=== PATIENT | female | born 1985 | race Caucasian/White ===

== ENCOUNTER 2020-07-01 07:35 | Inpatient (IN) | payer OTHER, SELFPAY ==
[2020-07-01] VITALS (148 sets, daily range): BP systolic 92–179; BP diastolic 43–133; PULSE 61–196; RESP 16–18; TEMP 36.6–37.3; O2SAT 93–100; BMI 29.2
--- NOTE | 2020-07-01 07:35 | LDADM ---
This patient, Mavis A Bansal, was admitted to Labor/Delivery/Recovery 119 on 07/01/20 at 07:35. Plans for labor, pain management and were discussed with patient. Patient/family oriented to hospital policies and general routines including ID bracelet, bed and alarms, visiting hours, pain management, procedures, bathroom and other care routines, personal items, smoking policy, room service/diet and guest tray routines, security routines, and visiting hours. Patient/Family are encouraged to report perceived risks to care and to ask questions if they do not understand what they are told or what they should do. See OBIX for further documentation.
--- NOTE | 2020-07-01 07:48 | PM.IMHP ---
H&P: HPI History of Present Illness Date/Time: 07/01/20 07:48 Chief complaint: amnicversion Narrative: Mavis Bansal is a 34 year old female at 39w3d who presents for ECV and possible due to breech presentation. has been complicated by prior x1 with successful in her G2. Her has otherwise been uncomplicated. She endorses good FM and denies vaginal bleeding or leakage of fluid. Review of Systems Cardiovascular: Cardiovascular: Denies chest pain, Denies leg edema, Denies palpitations, Denies dyspnea and Denies dyspnea on exertion Respiratory: Respiratory: Denies cough, Denies dyspnea and Denies dyspnea on exertion Gastrointestinal: Gastrointestinal: Denies abdominal pain, Denies constipation, Denies diarrhea, Denies nausea and Denies vomiting Genitourinary: Genitourinary: Denies hematuria, Denies urinary frequency, Denies dysuria, Denies pelvic pain, Denies urinary incontinence and Denies vaginal discharge Neurologic: Reports system reviewed and no additional complaints, except as documented Psychiatric: Psychiatric: Reports no additional psychiatric complaints Endocrine: Endocrine: Denies palpitations [facility] Family History Family History (Updated 06/04/20 @ 12:49 by Madhuri Lyle RN) Mother Scoliosis Sibling Brain neoplasm Social History Social History Smoking status: Never smoker Alcohol intake: current Substance use: never Spiritual care concerns: No Meds Home Medications and Allergies Home Medications Medication Instructions Recorded Confirmed Type PNV cmb#95-ferrous fumarate-FA 1 tablet PO DAILY 06/04/20 06/04/20 History [] Allergies Allergy/AdvReac Type Severity Reaction Status Date / Time No Known Allergies Allergy Verified 06/04/20 12:45 Exam Const: General: no acute distress Eyes: EOM: EOMs intact bilaterally Neck: Neck: supple Thyroid: thyroid normal Chest: Breast/axilla inspection: normal inspection of the breasts Breast/axilla palpation: normal palpation of the breasts, normal palpation of the axillae and no axillary lymphadenopathy Resp: Effort & Inspection: normal respiratory effort Auscultation: clear to auscultation bilaterally Cardio: Rate: regular rate Rhythm: regular rhythm GI: Inspection: non-distended GI Palp: Yes Soft to palpation, No Tenderness to palpation present (GI) and No Guarding due to palpation present (GI) Auscultation: normal bowel sounds : General: No bladder normal to palpation External Female Exam: normal external appearance Speculum Exam - Vagina: normal vaginal discharge and No vaginal bleeding Speculum Exam - Cervix: nontender Bimanual exam- vagina & uterus: No bladder normal to palpation and No Cervical tenderness present OB/external & speculum: No vaginal bleeding Skin: General skin exam: normal color and no rashes or lesions noted Neuro: Cognition (Neuro): normal cognition Speech: normal speech Extrem: General: normal to inspection and no edema Psych: Mental Status: mental status grossly normal Affect: normal affect Assessment and Plan Assessment and plan (1) Supervision of high risk , unspecified, third trimester: Code(s): O09.93 - Supervision of high risk , unspecified, third trimester Status: Acute Assessment and Plan: 34 yo at 39w3d Rh+ GBS neg (2) History of section complicating : Code(s): O34.219 - Maternal care for unspecified type scar from previous delivery Status: Acute Assessment and Plan: C/s in G1 successful in G2 (3) Breech presentation: Code(s): O32.1XX0 - Maternal care for breech presentation, not applicable or unspecified Status: Acute Assessment and Plan: US On 06/26 showed ariel breech fetus EFW [id number], posterior placenta JOSETTE wnl plan for ECV, if successful will start IOL if unsuccessful will procee
[2020-07-01] MEDS: LACTATED RINGERS 1,000 ML 125 ML IV CONT ×3 (08:23→12:23)
[2020-07-01 08:34] LABS: Basophils Absolute Auto 0.1 K/mm3 (0.0-0.1); Basophils Percent Auto 0.5 % (0.2-1.2); Eosinophils Absolute Auto 0.2 K/mm3 (0-0.3); Eosinophils Percent Auto 1.7 % (0-4.4); Hematocrit 30.8 % (37.0-47.0); Hemoglobin 10.6 g/dL (12.0-15.0); Immature Granulocyte Absolute 0.11 K/mm3 (0.00-0.031); Immature Granulocyte Percent A 1.2 % (0-0.5); Lymphocytes Absolute Auto 1.81 K/mm3 (0.9-3.2); Lymphocytes Percent Auto 19.7 % (18.3-44.2); Mean Corpuscular HGB Conc 34.4 g/dl (32-36); Mean Corpuscular Hemoglobin 32.2 pg (26-34); Mean Corpuscular Volume 93.6 fl (80-100); Monocytes Absolute Auto 0.9 K/mm3 (0.1-0.6); Monocytes Percent Auto 9.9 % (2.6-8.5); Neutrophils Absolute Auto 6.1 K/mm3 (1.3-6.7); Platelet Count Result 177 k/mm3 (150-375); Red Blood Count 3.29 M/mm3 (4.2-5.4); White Blood Count 9.2 K/mm3 (4.5-10.0)
--- NOTE | 2020-07-01 08:56 | WPDANESEPPF ---
Anes - Initial Pre Proc Eval Procedure: Operation Date: 07/01/20 09:00 Proposed Procedures p Epidural for attempted version with Induction of labor or Repeat Section to follow - Joshua Morris MD Date/Time: 07/01/20 08:56 Surgeon: Joshua Morris MD Pre Op Diagnosis: amnicversion Patient Data Age: 34 Gender: F Height: 5 ft 6 in Weight: 82 kg Last Vital Signs Temp 36.6 C 07/01/20 07:55 Pulse 66 07/01/20 08:46 BP 107/65 07/01/20 08:46 Allergies Allergy/AdvReac Type Severity Reaction Status Date / Time No Known Allergies Allergy Verified 06/04/20 12:45 Home Medications Medication Instructions Recorded Confirmed Type PNV cmb#95-ferrous fumarate-FA 1 tablet PO DAILY 06/04/20 06/04/20 History [] Laboratory Tests 07/01/20 07/01/20 08:25 08:25 WBC 9.2 K/mm3 K/mm3 (4.5-10.0) RBC 3.29 M/mm3 L M/mm3 (4.2-5.4) Hgb 10.6 g/dL L g/dL (12.0-15.0) Hct 30.8 % L % (37.0-47.0) MCV 93.6 fl fl (80-100) MCH 32.2 pg pg (26-34) MCHC 34.4 g/dl g/dl (32-36) RDW 13.0 % % (11.5-14.5) Plt Count 177 k/mm3 k/mm3 (150-375) MPV 10.0 fl fl (7.4-10.4) Immature Gran % (Auto) 1.2 % H % (0-0.5) Neut % (Auto) 67.0 % % (45.5-73.1) Lymph % (Auto) 19.7 % % (18.3-44.2) [place] % (Auto) 9.9 % H % (2.6-8.5) Eos % (Auto) 1.7 % % (0-4.4) Baso % (Auto) 0.5 % % (0.2-1.2) Lymph # (Auto) 1.81 K/mm3 K/mm3 (0.9-3.2) [place] # (Auto) 0.9 K/mm3 H K/mm3 (0.1-0.6) Eos # (Auto) 0.2 K/mm3 K/mm3 (0-0.3) Baso # (Auto) 0.1 K/mm3 K/mm3 (0.0-0.1) Abs Immat Gran (auto) 0.11 K/mm3 H K/mm3 (0.00-0.031) Absolute Neuts (auto) 6.1 K/mm3 K/mm3 (1.3-6.7) Absolute Nucleated RBC 0.0 K/mm3 K/mm3 (0.0-0.012) Nucleated RBC % 0.0 % % (0.0-0.2) RPR Pending Patient hx anesthesia problems: none Family hx anesthesia problems: none [facility] Past Medical History Medical History (Updated 07/01/20 @ 08:56 by Kyle Bearden MD) History of Family History Family History Mother Scoliosis Sibling Brain neoplasm Social History Social History Smoking status: Never smoker Alcohol intake: current Substance use: never Spiritual care concerns: No Anes - Eval Final PreProcedure Day of Procedure 07/01/20 08:56 Patient weight: overweight Heart: regular rate and rhythm Lungs: clear to auscultation Airway: Mallampati scale class II Neurological: alert and oriented Last oral intake: >/= 8 hours ASA classification: II Emergent: no Anesthetic plan: proceed Anesthesia type and monitoring: regional epidural and standard monitoring Informed Consent: The patient's anesthetic plan and its attendant risks and benefits were discussed with the patient/family/POA. Questions were solicited and answers provided to the satisfaction of the patient/family/POA.
[2020-07-01] MEDS: TERBUTALINE SULFATE 1 MG/ML VIAL 0.25 MG SUB-Q (09:31)
--- NOTE | 2020-07-01 09:53 | P.OP_ITS ---
Procedure Note - Detailed Date of procedure: 07/01/20 Pre-op diagnosis: amnicversion Post-op diagnosis: same Procedure performed: External cephalic version Description of procedure: The patient was counseled as above. Risks, benefits, and alternatives of ECV were discussed. Sonogram confirmed that the fetus was in breech position and no evidence of a nuchal cord with color doppler. The NST was reactive. The patient has no medical contraindications for terbutaline administration. Terbutaline 0.25mg sq was given by the RN. Epidural was placed by anesthesia. The patent was wheeled into the OR and laced in the supine position with a leftw yumiko tilt. Bedside US again confirmed breech presentation with the head in the LUQ and the back up. Decision was made to proceed with a forward role technique in a clockwise fashion. The buttocks was lifted out of the pelvis with direct suprapubic pressure. Once the fetus was disengaged, pressure was applied to the head to role in a clockwise direction. Pressure was also applied to the buttock to rotate clockwise cephalad. Direct BSUS was again performed to check postition. The version was successful on the first attempt. The fetus was placed back on the monitor following the procedure. FHT were noted to be bradycardic. Maternal blood pressure was noted to be hypotensive. BP was corrected by anesthesia. Maternal O2 supplementation was administered. FHT were monitored and noted to return to baseline. The patient was then transferred to a L&D room for IOL. Will continue to monitor FHT. Anesthesia: epidural Surgeon: Joshua Morris MD Estimated blood loss (mL): 0 Drains: No Packing: No Pathology: none sent Complications: No immediate complications Condition: stable Disposition: floor
--- NOTE | 2020-07-01 10:06 | PM.OBPNLAB ---
Pain Control Date/time seen: 07/01/20 10:06 Pain control: epidural Pelvic Exam Dilation (cm): 1 Effacement (%): 50 station: -3 Amniotic membrane status: Intact Contractions Monitor mode: None Status status: Category l Assessment and Plan Plan: begin patient augmentation Comments: fetus cephalic by BSUS. AROM for clear fluid. will augment with pitocin in 30 min if FHT remain cat 1
[2020-07-01] MEDS: OXYTOCIN 30 UNITS/NS 500 ML 30 UNITS/500 ML BAG 125 UNITS IV CONT ×2 (11:02→19:14)
[2020-07-01] MEDS: SODIUM CHLORIDE 0.9% IV 300 ML 600 ML I-UTERINE (17:20)
--- NOTE | 2020-07-01 18:43 | PM.OBPRVD ---
OB - Delivery Note Procedure Delivery date: 07/01/20 Procedure: Procedures Operation Date: 07/01/20 09:00 <No data on this case meets the specified criteria> events: Previous Induction method: per pitocin protocol Delivery augmentation: rupture of membranes Delivery monitor: external FHT Route of delivery: Episiotomy description: None Laceration description: Perineal - 2nd Degree Delivery repair: vicryl Specimen: No Estimated blood loss (mL): 300 Anesthesia type: Epidural Disposition: floor () Complications: No immediate complications [place] Baby Date of : 07/01/20 Time of : 18:22 Weeks of gestation at delivery: 39 gender: Female Weight (pounds): 7 Weight (ounces): 14 presentation: vertex position: Right Occiput Anterior Placenta delivery description: Spontaneous cord vessel description: 3 Vessels score one minute: 8 score five minutes: 9
[2020-07-01] MEDS: BENZOCAINE 20% AER SPR (*SP) 56 GM CAN 1 SPRAY TOPICAL (20:25)
[2020-07-01] MEDS: WITCH HAZEL 40 PADS 1 PAD TOPICAL (20:25)
[2020-07-01] MEDS: IBUPROFEN 600 MG TABLET PO (20:25)
--- NOTE | 2020-07-01 21:39 | PC.NURSE ---
07/01/2020 at 2114 Patient transferred to post room in wheelchair to room 283. Support person present. Oriented to unit, room, information board, rooming in, admission packet and security measures. Patient verbalizes understanding.
[2020-07-02] MEDS: IBUPROFEN 600 MG TABLET PO ×2 (04:48→17:26)
[2020-07-02 05:10] LABS: Hematocrit 25.2 % (37.0-47.0); Hemoglobin 8.7 g/dL (12.0-15.0)
[2020-07-02 07:30] VITALS: BP 106/64; PULSE 69; RESP 16; TEMP 36.4; O2SAT 100
--- NOTE | 2020-07-02 07:34 | P.PNOB_ITS ---
OB - PN: Subj Subjective Date/time seen: 07/02/20 07:34 Patient comments: no complaints, pain well controlled and tolerating diet [place] feeding status: exclusively breast feeding Narrative: patient doing well this AM. No complaints. Pain is well controlled. She reports minimal bleeding. She is ambulating and voiding without difficulty. She is tolerating PO. She denies N/V, fever, chills. OB - PN: Obj Data Labs CBC & Chem 7: 07/02/20 04:35 Labs: Laboratory Results - last 24 hr 07/01/20 07/01/20 07/02/20 08:25 08:25 04:35 WBC 9.2 RBC 3.29 L Hgb 10.6 L 8.7 L Hct 30.8 L 25.2 L MCV 93.6 MCH 32.2 MCHC 34.4 RDW 13.0 Plt Count 177 MPV 10.0 Immature Gran % (Auto) 1.2 H Neut % (Auto) 67.0 Lymph % (Auto) 19.7 [place] % (Auto) 9.9 H Eos % (Auto) 1.7 Baso % (Auto) 0.5 Lymph # (Auto) 1.81 [place] # (Auto) 0.9 H Eos # (Auto) 0.2 Baso # (Auto) 0.1 Abs Immat Gran (auto) 0.11 H Absolute Neuts (auto) 6.1 Absolute Nucleated RBC 0.0 Nucleated RBC % 0.0 Blood Type A Positive Antibody Screen Negative OB - PN A/P Plan day: 1 Plan: routine care Comments: patient doing well H/H 8.05/04, will start iron supplementation today continue routine care Time Spent With Patient Time: Total time spent is greater than 50% in coordination of care (as documented) at patient's floor/unit and/or counseling patient: Time with patient: less than 15 minutes Review of Systems Review of Systems: All systems reviewed & are unremarkable except as noted in HPI and below Exam Const: General: comfortable and no acute distress Resp: Effort & Inspection: normal respiratory effort Cardio: Rate: regular rate GI: GI Palp: Yes Soft to palpation and No Tenderness to palpation present (GI) Auscultation: normal bowel sounds Other: fundus firm and below umbilicus. Psych: Affect: normal affect
[2020-07-02 08:24] LABS: Rapid Plasma Reagin Non-Reactive (NonReactive)
[2020-07-02] MEDS: POLYSACCHARIDE IRON COMPLEX 150 MG CAPSULE PO ×2 (08:28→17:26)
[2020-07-02] MEDS: MULTIVIT/MIN/PREN/FOL AC/IRON TABLET 1 TAB PO (08:28)
[2020-07-02] MEDS: ACETAMINOPHEN 325 MG TABLET 650 MG PO ×3 (08:28→23:13)
--- NOTE | 2020-07-02 11:05 | PC.NURSE ---
Consulted with patient, mother called out for assist with waking , reporting last feeding was 4 hours ago. Reviewed infant feeding cues, frequencies, duration of feedings, feeding elimination flow sheet, and signs of adequate intake. Demonstrated stimulation techniques to wake for feeding. Several minutes of stimulation before awake and showing feeding cues. Assisted with to breast. Reviewed positioning/alignment in cross cradle, holding breast in U hold and guided asymmetrical latch on. was able to latch correctly with first attempt. Infant nursed eagerly, with steady draws and frequent swallowing noted. Reviewed signs of a correct latch, effective nursing and suck swallow ratio. Infant was able to maintain latch without discomfort to mother. Nipple care reviewed. Suggested to stimulate while feeding to keep awake and nursing effectively for increased intake and to assist with maintaining deep latch. Demonstrated how to adjust latch more deeply while feeidng. Instructed mother to call out for RN assistance if she is unable to latch infant for feeding or she has discomfort with nursing. Instructed feeding should be initiated three hours from start of last feeding or if feeding cues are noted before. Mother voiced understanding of information shared.
--- NOTE | 2020-07-02 14:01 | WPDANLDPN2 ---
Anes-Prog Note L&D Date/Time: 07/02/20 14:01 Comfortable throughout: labor and delivery Neuraxial method: epidural Neuro status: Neuro function grossly intact. Cardiovascular status: normal Respiratory status: normal Airway patency: baseline Mental status: baseline Post-Op hydration status: normal Vital Signs: Last Vital Signs Temp 36.4 C 07/02/20 07:30 Pulse 69 07/02/20 07:30 Resp 16 07/02/20 07:30 BP 106/64 07/02/20 07:30 Pulse Ox 100 07/02/20 07:30 Pain score (VAS): 0/10. Patient resting up to bedside, appears comfortable at time of assessment. Support person at bedside. I/O: Intake & Output 07/01/20 07/02/20 07/02/20 23:59 07:59 15:59 Intake Total 500 Output Total 400 Balance 100 Post-procedural complaints: none Patient feedback: Patient satisfied with anesthetic care.
[2020-07-02] MEDS: DOCUSATE SODIUM 100 MG CAPSULE PO (17:30)
[2020-07-02 19:12] VITALS: BP 113/67; PULSE 77; RESP 16; TEMP 36.9; O2SAT 97
[2020-07-03 08:30] VITALS: BP 102/58; PULSE 67; RESP 13; TEMP 36.8; O2SAT 100
--- NOTE | 2020-07-03 08:30 | PC.NURSE ---
Patient viewed the discharge video Mother & Baby Care, The First Two Weeks . Patient was given the opportunity and encouraged to ask questions. Patient verbalized understanding of information shared and has been given the mother/baby guide for home reference.
[2020-07-03] MEDS: POLYSACCHARIDE IRON COMPLEX 150 MG CAPSULE PO (08:33)
[2020-07-03] MEDS: DOCUSATE SODIUM 100 MG CAPSULE PO (08:33)
[2020-07-03] MEDS: IBUPROFEN 600 MG TABLET PO (08:33)
[2020-07-03] MEDS: MULTIVIT/MIN/PREN/FOL AC/IRON TABLET 1 TAB PO (08:33)
--- NOTE | 2020-07-03 11:05 | PC.NURSE ---
Oberved mother is able to independently latch with appropriate positioning/alignment. Mother reports this to be third child to breastfeed. She denies any nipple discomfort, is feeding as required and waking infant to feed if needed. has had at least 8 effective feedings in the last 24 hours , and is currently meeting outcomes for weight, output, jaundice and feeding frequencies. Mother states she feels confident to continue effective at home. Reviewed transition to breast milk, signs of adequate intake, and engorgement/relief. Instructed to call ICP if intake/output less than required. Reviewed regular medications mother is taking. Information provided per [facility]. Reviewed community resources on the [facility] website and in the Mom/Baby guide. Information on outpatient services provided. Mother has no further questions at this time.
[2020-07-04 11:20] VITALS: BP 109/60; PULSE 68; RESP 20; O2SAT 99
--- NOTE | 2020-07-18 08:10 | PM.OBDSVD ---
DS: Admitting Diagnosis Admitting Diagnosis Admitting Diagnosis: amnicversion OB - DS: Summary OB Procedures : None OB Procedures Intrapartum: Spontaneous Vag Delivery OB Procedures: : None Peripartum Data Procedures: Procedures Operation Date: 07/01/20 09:00 <No data on this case meets the specified criteria> Status at Discharge Functional status at discharge: independent ambulation Overall status at discharge: patient is back to baseline Time Spent with Patient Time attestation: Total time spent providing and/or coordinating discharge services: Time spent: Less than 30 minutes Exam Const: General: comfortable and no acute distress Resp: Effort & Inspection: normal respiratory effort Auscultation: clear to auscultation bilaterally Cardio: Rate: regular rate GI: GI Palp: Yes Soft to palpation Auscultation: normal bowel sounds Other: Fundus firm below umbilicus Psych: Appearance: grossly normal Mental Status: mental status grossly normal Affect: normal affect Discharge Plan Discharge Discharging Clinician: Joshua Morris Patient Disposition: Home, Self-Care Activity: may shower, as tolerated and pelvic rest Diet: regular Discharge Instructions: call or return for temperature >100.4, bleeding >2 pads/hr for 2 hrs, pain not controlled with medications, signs/symptoms of mastitis Education: Mom and Baby Guide and Preeclampsia Handout Given to: Mother Follow-Up: Call your delivering provider's office for an appointment to be seen in: 4 Weeks Mom and baby [facility] the follow-up appointment. Appointment Date/Time: July 04, 2020 at 11:00 am What to expect at your follow-up visit: Physical Assessment Call [phone] if you are unable to keep your appointment time. BREAST CARE: * Wear a snug supportive bra. * For engorgement discomfort: Breast Feeding: * Apply warm moist washcloths * Express milk as needed to relieve engorgement * Wear loose clothing * For sore nipples: * Identify correct latch-on * Apply warm moist washcloths before and after nursing * Air dry nipples after nursing * May apply Lansinoh cream to nipples EPISIOTOMY/PERINEAL CARE: * Until bleeding stops, use your mani bottle after urinating * Change your pad frequently throughout the day * You may take sitz baths several times a day (fill your bathtub with warm water and soak for 20 minutes.) Do NOT bathe in the water * No tub baths until seen by your physician - You may shower ACTIVITY: * Rest as much as possible. * Do not exercise or lift anything heavier than your baby (such as laundry or other children.) * Avoid stairs or driving as much as possible. * Do not put anything into the vagina. No douching, tampons, or sexual activity until seen by physician. NOTIFY PHYSICIAN IF YOU HAVE ANY QUESTIONS OR IF ANY OF THE FOLLOWING SYMPTOMS OCCUR: * If your episiotomy or incision becomes red, swollen, or more painful than what you have experienced in the hospital. * If your vaginal bleeding becomes foul smelling. * If your vaginal bleeding becomes more heavy than a period or if your bleeding changes from pink to bright red. However, you may pass an occasional walnut-sized clot once or twice for the first week . * If you experience a sharp, shooting pain in you calves. * If you discover a hard, reddened area on your breast or if you experience flu-like symptoms. DIET: * Eat regular, well-balanced meals. * Drink plenty of fluids daily. If , drink to thirst. Patient Instructions: Vaginal Delivery (DC) Stand Alone Forms: General Discharge Information Follow-up/Referrals: Joshua Morris MD [Physician] - 4 Weeks Discharge Medications: New acetaminophen [Mapap (acetaminophen)] 325 mg Tablet 650 mg PO Q6H PRN (Reason: Mild Pain (1-3
== END 2020-07-03 11:35 | disposition home or self-care (01) | DRG 807 ==
LOC: ANHLDR 11:02 → ANHOB2 21:14
PROVIDERS: Admitting Provider Student in an Organized Health Care Education/Training Program; Visit Provider Student in an Organized Health Care Education/Training Program
DX: O32.1XX0 Maternal care for breech presentation, not applicable or unspecified (principal); Z37.0 Single live birth; O34.211 Maternal care for low transverse scar from previous cesarean delivery; O70.1 Second degree perineal laceration during delivery; O76 Abnormality in fetal heart rate and rhythm complicating labor and delivery; Z3A.39 39 weeks gestation of pregnancy; Z23 Encounter for immunization
CPT/HCPCS: 36415; 85014; 85018; 85025; 86592; 86850; 86900; 86901; 90471; 90686; A9270; G0008; J2590; J2795; J3105; J7030; J7120

== ENCOUNTER 2025-01-10 09:45 | Inpatient (IN) | payer OTHER, SELFPAY ==
[2025-01-09 13:00] VITALS: BMI 27.6
[2025-01-10] VITALS (138 sets, daily range): BP systolic 92–132; BP diastolic 47–81; PULSE 61–93; RESP 16–18; TEMP 37–37.2; O2SAT 96–100
--- NOTE | 2025-01-10 10:34 | LDADM ---
This patient, Mavis A Bansal, was admitted to Labor/Delivery/Recovery 107 on 01/10/25 at 09:45. Plans for labor, pain management and were discussed with patient. Patient/family oriented to hospital policies and general routines including ID bracelet, bed and alarms, visiting hours, pain management, procedures, bathroom and other care routines, personal items, smoking policy, room service/diet and guest tray routines, security routines, and visiting hours. Patient/Family are encouraged to report perceived risks to care and to ask questions if they do not understand what they are told or what they should do. See OBIX for further documentation.
[2025-01-10 10:51] LABS: Basophils Percent Auto 0.4 % (0.2-1.2); Eosinophils Absolute Auto 0.1 K/mm3 (0-0.3); Hematocrit 32.7 % (37.0-47.0); Hemoglobin 11.3 g/dL (12.0-15.0); Immature Granulocyte Absolute 0.06 K/mm3 (0.00-0.031); Immature Granulocyte Percent A 0.6 % (0-0.5); Lymphocytes Absolute Auto 1.55 K/mm3 (0.9-3.2); Lymphocytes Percent Auto 16.8 % (18.3-44.2); Mean Corpuscular HGB Conc 34.6 g/dl (32-36); Mean Corpuscular Hemoglobin 31.2 pg (26-34); Mean Corpuscular Volume 90.3 fl (80-100); Monocytes Absolute Auto 0.5 K/mm3 (0.1-0.6); Monocytes Percent Auto 5.6 % (2.6-8.5); Neutrophils Percent Auto 75.6 % (45.5-73.1); Platelet Count Result 216 k/mm3 (150-375); Red Blood Count 3.62 M/mm3 (4.2-5.4); Red Cell Distribution Width 13.4 % (11.5-14.5); White Blood Count 9.2 K/mm3 (4.5-10.0)
[2025-01-10] MEDS: LACTATED RINGERS 1,000 ML 125 ML IV CONT (10:56)
--- NOTE | 2025-01-10 11:04 | PM.IMHP ---
H&P: HPI History of Present Illness Date/Time: 01/10/25 11:04 Chief Complaint: Labor at term with ruptured membranes Narrative: 39-year-old 4 para 3 whose last menstrual period is 04/10/2024, EDC is 01/15/2025, confirmed by 8 week ultrasound presents at 39 and half weeks gestation in active labor she has had a followed by 2 . This has been unremarkable she is negative for group B strep. The back is been described great detail and she voiced good understanding of the risks Review of Systems Review of Systems: All systems reviewed & are unremarkable except as noted in HPI and below PMFSH Past Medical History Medical History History of Family History Family History Mother Scoliosis Sibling Brain neoplasm Social History Social History Smoking status: Never smoker Alcohol intake: current Substance use: never Do You Feel Safe in your Home?: Yes Lack of Transportation: No Lack of Food: Never True Current Housing: I Have Housing Concerned About Future Housing: No Difficulty Paying Gas/Electric Bills: No Difficulty Paying for Meds: No Currently Unemployed: No Education: Bachelor's Degree Difficulty w/ Childcare or Family Care: No Spiritual care concerns: No Meds Home Medications and Allergies Home Medications ?Medication ?Instructions ?Recorded ?Confirmed ?Type vit no.95-ferrous 1 tablet PO DAILY 06/04/20 12/18/24 History fumarate 28 mg-folic acid 800 mcg tablet () Allergies Allergy/AdvReac Type Severity Reaction Status Date / Time No Known Allergies Allergy Verified 01/10/25 10:57 Vital Signs Vital Signs - 24 hr 01/10/25 10:29 01/10/25 10:31 01/10/25 10:33 Pulse Rate 68 66 Blood Pressure 102/76 101/69 Oxygen Delivery Room Air 01/10/25 10:46 01/10/25 11:01 Pulse Rate 66 72 Blood Pressure 106/71 110/67 Oxygen Delivery Exam Const: General: cooperative, healthy appearing and comfortable Nutritional Appearance: average body habitus Orientation/consciousness: oriented to person, oriented to place and oriented to time Resp: Effort & Inspection: normal respiratory effort Cardio: Rate: regular rate Rhythm: regular rhythm Heart sounds: S1 normal heart sound present and S2 normal heart sound present GI: Inspection: normal to inspection (Gravid soft uterus) : External Female Exam: normal external appearance Speculum Exam - Vagina: normal appearance of the vagina Speculum Exam - Cervix: normal appearance of the cervix (Cervix 4/75/2. Clear fluid seen. FHTs reassuring) Assessment and Plan Assessment and plan (1) History of section complicating : Code(s): O34.219 - Maternal care for unspecified type scar from previous delivery Status: Acute (2) Supervision of high risk , unspecified, third trimester: Code(s): O09.93 - Supervision of high risk , unspecified, third trimester Status: Acute Plan Epidural is in and working. Vaginal after is expected
--- OUTSIDE RECORDS SUMMARY | 2025-01-10 11:19 | XMS_ITS | Clinical Summary ---
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 Name Role Phone Unavailable Primary Care Provider Unavailabl e Allergies No known active allergies Medications No known medications Active Problems Problem Noted Date Diagnosed Date Abnormal ultrasound of breast 05/11/2019 Sign and symptom in breast 05/11/2019 Lump of right breast 02/02/2019 Social History Tobacco Use Types Packs/Day Years Used Date Smoking Tobacco: Never Smokeless Tobacco: Never Alcohol Use Standard Drinks/Week Comments Yes 0 (1 standard drink = 0.6 oz pur e alcohol) Comments No Sex and Gender Information Value Date Recorded Sex Assigned at Not on file 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 Gender Identity Not on file Sexual Orientation Not on file Last Filed Vital Signs Vital Sign Reading Time Taken Comments Blood Pressure 118/67 05/11/2019 8:48 AM CDT Pulse 73 05/11/2019 8:48 AM CDT Temperature 37.1 C (98.8 F) 05/11/2019 8:48 AM CDT Respiratory Rate - - Oxygen Saturation 99% 05/11/2019 8:48 AM CDT Inhaled Oxygen Concentration - - Weight 64.2 kg (141 lb 8 oz) 05/11/2019 8:48 AM CDT Height 167.6 cm (5' 6 ) 05/11/2019 8:48 AM CDT Body Mass Index 22.84 05/11/2019 8:48 AM CDT Plan of Treatment Health Maintenance Due Date Last Done Comments DTAP/TDAP/TD VACCINES (1 - Tdap) 2003 HEPATITIS B VACCINES (1 of 3 - 19+ 3-dose series) 2003 PAP SMEAR 2005 CERVICAL CANCER SCREENING 2014 HPV/Cotest (30-65) 2014 PAP SMEAR 2014 INFLUENZA VACCINE (#1) 2024 BREAST CANCER SCREENING 2024 11/25/2018 HPV VACCINES Aged Out No longer eligi ble based on patient's age to complete this topic PNEUMOCOCCAL VACCINE 0-49 YEARS Aged Out No longer eligible based on patient's age to complete this topic Procedures Procedure Name Priority Date/Time Associated Diagnosis Comments MAMMO BILAT DIAGNOSTIC Routine 11/25/2018 from Last 3 Months or Most Recently Relevant to Health Maintenance Results * MAMMO BILAT DIAGNOSTIC (11/25/2018) Anatomical Region Laterality Modality Breast Bilateral Mammography us Abstract Provider MAMMO ORDERABLES Final Result from Last 3 Months or Most Recently Relevant to Health Maintenance Insurance [employer] CHOICE POS II
[2025-01-10 11:27] LABS: Syphilis IgG/IgM Antibody Negative (Negative)
[2025-01-10 11:40] LABS: HIV 1/2 Ab P24 Ag Result Negative (Negative)
--- NOTE | 2025-01-10 15:25 | PM.OBPNLAB ---
Pain Control Date/time seen: 01/10/25 15:25 Pain control: tolerating well and epidural Pelvic Exam Dilation (cm): 5 Effacement (%): 100 station: -2
[2025-01-10] MEDS: OXYTOCIN 30 UNITS/NS 500 ML 30 UNITS/500 ML BAG 999 UNITS IV CONT (18:22)
--- NOTE | 2025-01-10 18:28 | PM.OBPRVD ---
OB - Vaginal Delivery Note Procedure Delivery date: 01/10/25 Events: Previous Delivery Induction method: None Delivery augmentation: Pitocin Delivery monitor: External FHT, External Uterine and Internal Uterine Route of delivery: Episiotomy description: None Laceration Description: Perineal - 1st Degree Delivery repair: vicryl Specimen: No Quantitative Blood Loss (ml): 62 Anesthesia type: Epidural Disposition: Floor Narrative: Patient was admitted with spontaneous rupture membranes at 39 weeks gestation. She had previous section followed by 2 successful vaginal after epidural anesthesia was placed. IUPC was placed and Pitocin was begun and a very small dose she was complete she pushed delivered head spontaneously in the JEN position. Anterior posterior shoulder delivered spontaneously. Cord clamped cut passed off the table given Apgars of 8 [id number]. Cord blood was drawn. Placenta delivered intact spontaneously. Twenty of Pitocin placed IV firm uterus spot lateral sidewall small first-degree laceration was noted figure-eight 0 Vicryl was placed blood loss was 62cc. All sponge, needle, instrument counts were correct. There were no immediate complications [place] Baby Date of : 01/10/25 Time of : 18:19 Gestational Age by Date: 39 gender: Male presentation: vertex position: Left Occiput Anterior Placenta delivery description: Spontaneous Cord Vessel Description: 3 Vessels score one minute: 8 score five minutes: 9
--- NOTE | 2025-01-10 18:31 | P.DS_ITS ---
DS: Admitting Diagnosis Discharge Date 01/12/2025 Admitting Diagnosis Term /previous section DS: Discharge Diagnosis Discharge Diagnosis (1) History of section complicating : Code(s): O34.219 - Maternal care for unspecified type scar from previous delivery Status: Acute (2) Supervision of high risk , unspecified, third trimester: Code(s): O09.93 - Supervision of high risk , unspecified, third trimester Status: Acute DS: Summary Hospital Course Reason for hospitalization: Patient was admitted in active labor on the early a.m. of 01/10/2025 she underwent successful vaginal after with epidural anesthesia Hospital Course: Patient's hospital course was unremarkable she remained afebrile she was up, voiding without difficulty regular diet, care for the baby and without complaints. Time Spent with Patient Time attestation: Total time spent providing and/or coordinating discharge services: Exam Const: General: cooperative, healthy appearing and comfortable Nutritional Appearance: average body habitus Orientation/consciousness: oriented to person, oriented to place and oriented to time HENMT: Head: normal to inspection Resp: Effort & Inspection: normal respiratory effort Cardio: Rate: regular rate Rhythm: regular rhythm Heart sounds: S1 normal heart sound present and S2 normal heart sound present GI: Inspection: normal to inspection (Fundus firm below the umbilicus) DS: Data Data Completed and Pending Labs on day of discharge: Labs from last 24 hours 01/10/25 10:28 WBC 9.2 RBC 3.62 L Hgb 11.3 L Hct 32.7 L MCV 90.3 MCH 31.2 MCHC 34.6 RDW 13.4 Plt Count 216 MPV 10.0 Immature Gran % (Auto) 0.6 H Neut % (Auto) 75.6 H Lymph % (Auto) 16.8 L [place] % (Auto) 5.6 Eos % (Auto) 1.0 Baso % (Auto) 0.4 Lymph # (Auto) 1.55 Wood # (Auto) 0.5 Eos # (Auto) 0.1 Baso # (Auto) 0.0 Abs Immat Gran (auto) 0.06 H Absolute Neuts (auto) 7.0 H Absolute Nucleated RBC 0.000 Nucleated RBC % 0.0 Syphilis IgG/IgM Ab Negative HIV 1&2 Ab/P24 Ag 4thGn Negative Blood Type A Positive Antibody Screen Negative Discharge Plan Discharge Attending physician on discharge: Kyle Fischer Discharging Clinician: Kyle Fischer Patient Disposition: Home, Self-Care Activity: may shower, no straining and pelvic rest Diet: heart healthy Wound Care Instructions: follow printed instructions Patient Instructions: Antibiotic Form Patient Language: Moz[place]ican Stand Alone Forms: General Discharge Information Follow-up/Referrals: Kyle Fischer MD [Physician] - Discharge Medications: Continued PNV [id number] fumarate-FA [] 28 mg iron- 800 mcg Tablet 1 tablet PO DAILY Date of admission: 01/10/25 09:45 Primary Care Provider: PHYSICIAN,PREPARER SAMPLES AND REPAIRS Admitting Provider: Kyle Fischer Attending physician on admission: Kyle Fischer Condition: Stable
[2025-01-10] MEDS: OXYTOCIN 30 UNITS/NS 500 ML 30 UNITS/500 ML BAG 125 UNITS IV CONT (18:54)
[2025-01-10] MEDS: WITCH HAZEL 40 PADS 1 PAD TOPICAL (22:00)
[2025-01-10] MEDS: BENZOCAINE 20% AER SPR (*SP) 56 GM CAN 1 SPRAY TOPICAL (22:00)
--- NOTE | 2025-01-10 22:24 | OBPPTRN ---
Patient transferred to post room #283 via wheelchair. Support person present. Oriented to unit, room, information board, rooming in, admission packet and security measures. Patient verbalizes understanding.
[2025-01-11 03:29] VITALS: BP 97/64; PULSE 65; RESP 18; TEMP 36.3; O2SAT 99
[2025-01-11 03:45] LABS: Hematocrit 27.9 % (37.0-47.0); Hemoglobin 9.5 g/dL (12.0-15.0)
--- NOTE | 2025-01-11 05:37 | PM.OBPNVD ---
OB - PN: Subj Subjective Date/time seen: 01/11/25 05:37 Patient comments: no complaints, pain well controlled and tolerating diet [place] baby status: doing well OB - PN: Obj Data Labs 01/11/25 03:25 Labs: Laboratory Results - last 24 hr 01/10/25 01/11/25 10:28 03:25 WBC 9.2 RBC 3.62 L Hgb 11.3 L 9.5 L Hct 32.7 L 27.9 L MCV 90.3 MCH 31.2 MCHC 34.6 RDW 13.4 Plt Count 216 MPV 10.0 Immature Gran % (Auto) 0.6 H Neut % (Auto) 75.6 H Lymph % (Auto) 16.8 L [place] % (Auto) 5.6 Eos % (Auto) 1.0 Baso % (Auto) 0.4 Lymph # (Auto) 1.55 [place] # (Auto) 0.5 Eos # (Auto) 0.1 Baso # (Auto) 0.0 Abs Immat Gran (auto) 0.06 H Absolute Neuts (auto) 7.0 H Absolute Nucleated RBC 0.000 Nucleated RBC % 0.0 Syphilis IgG/IgM Ab Negative HIV 1&2 Ab/P24 Ag 4thGn Negative Blood Type A Positive Antibody Screen Negative OB - PN A/P Assessment and Plan (1) Supervision of high risk , unspecified, third trimester: Code(s): O09.93 - Supervision of high risk , unspecified, third trimester Status: Acute (2) History of section complicating : Code(s): O34.219 - Maternal care for unspecified type scar from previous delivery Status: Acute Plan routine care Time Spent With Patient Time: Total time spent is greater than 50% in coordination of care (as documented) at patient's floor/unit and/or counseling patient: Review of Systems Review of Systems: All systems reviewed & are unremarkable except as noted in HPI and below Exam Const: General: cooperative, healthy appearing and comfortable Nutritional Appearance: average body habitus Orientation/consciousness: oriented to person, oriented to place and oriented to time HENMT: Head: normal to inspection Resp: Effort & Inspection: normal respiratory effort Cardio: Rate: regular rate Rhythm: regular rhythm Heart sounds: S1 normal heart sound present and S2 normal heart sound present GI: Inspection: normal to inspection
[2025-01-11] MEDS: IBUPROFEN 600 MG TABLET PO ×3 (05:40→22:05)
[2025-01-11 07:55] VITALS: BP 97/72; PULSE 69; RESP 16; TEMP 36.5; O2SAT 99
[2025-01-11] MEDS: MULTIVIT/MIN/PREN/FOL AC/IRON TABLET 1 TAB PO (08:03)
[2025-01-11] MEDS: POLYSACCHARIDE IRON COMPLEX 150 MG CAPSULE PO ×2 (08:03→17:00)
[2025-01-11] MEDS: DOCUSATE SODIUM 100 MG CAPSULE PO ×2 (08:03→17:00)
--- NOTE | 2025-01-11 09:36 | WPDANLDPN2 ---
Anes-Prog Note L&D Date/Time: 01/11/25 09:36 Comfortable throughout: labor and delivery Neuraxial method: epidural Epidural/Spinal procedure site: clean & non-tender Neuro status: Neuro function grossly intact. Cardiovascular status: normal Respiratory status: normal Airway patency: baseline Mental status: baseline Post-Op hydration status: normal Vital Signs: Last Vital Signs Temp 36.5 C 01/11/25 07:55 Pulse 69 01/11/25 07:55 Resp 16 01/11/25 07:55 BP 97/72 L 01/11/25 07:55 Pulse Ox 99 01/11/25 07:55 O2 Del Method Room Air 01/10/25 10:33 Pain score (VAS): 1 I/O: Intake & Output 01/10/25 01/11/25 01/11/25 23:59 07:59 15:59 Output Total 202 Balance -202 Post-procedural complaints: none Patient feedback: Patient satisfied with anesthetic care.
--- NOTE | 2025-01-11 09:38 | PC.NURSE ---
Introductions were made, communication board updated. Consulted with patient to assess needs related to . Mother states that infant was able to nurse well for the first feeding of life and she has been unable to get infant to latch well since. She states that she has been unable to get infant to suck, he sits on the breast with an open mouth. She states that has been spitting up white flem-like spit up which is likely due to her quick delivery. Infant was asleep and several attempts to wake baby for feeding was made and unsuccessful. Baby was able to be aroused but once placed to the breast he fell quickly back to sleep. A blood sugar was taken due to mother stating that she does not think has had a true feeding since the initial feeding in life. Blood sugar results were 97. Mother instructed to do skin to skin and watch for infant feeding cues. Educated mother on how to recognize early feeding cues. Mother works well with her infant with encouragement and education, she breastfed her other children without difficulty. Mother voiced understanding of skin to skin, stimulating with massage touch, responsive feedings, hand expressed colostrum, talking to to encourage if it has been 2 -2.5 hours since the start of the last , to call if infant does not latch, or if there is discomfort with . Reported to the Primary RN.
[2025-01-11 12:49] VITALS: BP 108/62; PULSE 67; RESP 16; TEMP 36.3; O2SAT 98
[2025-01-12 01:00] VITALS: BP 108/58; PULSE 65; RESP 18; TEMP 36.4; O2SAT 97
--- NOTE | 2025-01-12 06:44 | P.PNOB_ITS ---
OB - PN: Subj Subjective Date/time seen: 01/12/25 06:44 Patient comments: no complaints, pain well controlled and tolerating diet [place] baby status: doing well OB - PN: Obj Data Labs 01/11/25 03:25 OB - PN A/P Assessment and Plan (1) Supervision of high risk , unspecified, third trimester: Code(s): O09.93 - Supervision of high risk , unspecified, third trimester Status: Acute (2) History of section complicating : Code(s): O34.219 - Maternal care for unspecified type scar from previous delivery Status: Acute Time Spent With Patient Time: Total time spent is greater than 50% in coordination of care (as documented) at patient's floor/unit and/or counseling patient: Review of Systems 2 Review of Systems: All systems reviewed & are unremarkable except as noted in HPI and below Exam 2 Const: General: cooperative, healthy appearing and comfortable Nutritional Appearance: average body habitus Orientation/consciousness: oriented to person, oriented to place and oriented to time HENMT: Head: normal to inspection Resp: Effort & Inspection: normal respiratory effort Cardio: Rate: regular rate Rhythm: regular rhythm Heart sounds: S1 normal heart sound present and S2 normal heart sound present GI: Inspection: normal to inspection
[2025-01-12 08:07] VITALS: BP 103/67; PULSE 70; RESP 14; TEMP 36.4; O2SAT 100
[2025-01-12] MEDS: DOCUSATE SODIUM 100 MG CAPSULE PO (08:34)
[2025-01-12] MEDS: POLYSACCHARIDE IRON COMPLEX 150 MG CAPSULE PO (08:34)
[2025-01-12] MEDS: MULTIVIT/MIN/PREN/FOL AC/IRON TABLET 1 TAB PO (08:34)
--- NOTE | 2025-01-12 11:17 | PC.NURSE ---
Mother verbalizes she is able to independently latch with appropriate positioning and alignment. She denies any nipple discomfort and is responsively . Infant is being supplementerd with formula after per parents preference. Infant is currently meeting outcomes for weight, output, jaundice, blood sugar and feeding frequencies of 8-12 times in 24 hours. Mother declines any additional assistance or education at this time. Mother is encouraged to call for assistance if her doesn?t latch, pain with latching, questions or concerns. Mother voiced understanding of information shared along with the mom/baby guide for an additional resource. Reported to the Primary RN.
--- NOTE | 2025-01-12 13:43 | PC.NURSE ---
Patient was given the opportunity to view the discharge video Mother & Baby Care, The First Two Weeks and to ask questions. Patient declined viewing the video and has been given the mother/baby guide for home reference.
[2025-01-13 09:09] VITALS: BP 113/65; PULSE 80; RESP 18; TEMP 36.6; O2SAT 100
== END 2025-01-12 14:30 | disposition home or self-care (01) | DRG 807 ==
LOC: ANHLDR 18:33 → ANHOB2 22:50
PROVIDERS: Admitting Provider Obstetrics & Gynecology; Visit Provider Obstetrics & Gynecology
DX: O34.219 Maternal care for unspecified type scar from previous cesarean delivery (principal); Z37.0 Single live birth; O70.0 First degree perineal laceration during delivery; Z3A.39 39 weeks gestation of pregnancy
CPT/HCPCS: 36415; 85014; 85018; 85025; 86593; 86703; 86850; 86900; 86901; A9270; G0432; J2590; J2795; J7120